=== PATIENT | male | born 1950 | race African-American/Black ===

== ENCOUNTER 2016-11-09 19:10 | Emergency (ER) | payer BC ==
[~2016-11-09 19:10] MED LIST: C5; COZ50 PO; ENDOCET1 TA3 PO; KLONOPIN WAF2 MG PO; LUNESTA3 MG PO; METHATAB5B PO; METHOC500B PO; METHOC750B PO; MSCONT100 PO; MSCONT60 PO; PCET PO; PERCOCET1 TA4 PO
== END 2016-11-09 20:01 | disposition home or self-care (01) ==
LOC: ER 19:10
DX: M79.604 Pain in right leg (principal); Z79.01 Long term (current) use of anticoagulants; Z79.899 Other long term (current) drug therapy; Z89.522 Acquired absence of left knee
CPT/HCPCS: 99283